=== PATIENT | female | born 1995 | race Caucasian/White ===

== ENCOUNTER 2023-10-16 08:09 | Emergency (ER) | payer OTHER ==
[2023-10-16 08:17] VITALS: BP 108/72; PULSE 65; RESP 20; TEMP 97.9; BMI 25.4
[2023-10-16] MEDS ORDERED: ACETAMINOPHEN 500 MG TABLET (FP) ONE (08:42)
[2023-10-16] MEDS: ACETAMINOPHEN 500 MG TABLET (FP) PO ONE (08:49)
[2023-10-16] MEDS ORDERED: hydrOXYzine PAMOATE 25 MG CAPSULE (FP) PO ONE (09:33)
[2023-10-16] MEDS ORDERED: DEXAMETHASONE SOD PHOSPHATE 10 MG/1 ML VIAL ONE (09:33)
[2023-10-16] MEDS: DEXAMETHASONE SOD PHOSPHATE 10 MG/1 ML VIAL IM ONE (09:40)
[2023-10-16] MEDS: hydrOXYzine PAMOATE 25 MG CAPSULE (FP) PO ONE (09:40)
== END 2023-10-16 10:35 | disposition home or self-care (01) ==
LOC: JER 08:09
PROC: 3E0133Z Introduction of Anti-inflammatory into Subcutaneous Tissue, Percutaneous Approach (ICD-10-PCS; principal; 2023-10-16)
DX: L23.9 Allergic contact dermatitis, unspecified cause (principal); B08.4 Enteroviral vesicular stomatitis with exanthem; R09.81 Nasal congestion; J34.89 Other specified disorders of nose and nasal sinuses; F41.9 Anxiety disorder, unspecified; Z20.822 Contact with and (suspected) exposure to COVID-19
CPT/HCPCS: 0241U-QW; 93005; 93010; 99284-25; J1100